=== PATIENT | male | born 1960 | race Caucasian/White ===

== ENCOUNTER 2016-12-30 05:59 | Emergency (ER) | payer MEDICAID ==
[2016-12-30] MEDS ORDERED: NS 1,000 ML IV ONE ×2 (06:27)
--- NOTE | 2016-12-30 06:34 | EDPHY ---
H & P Stated Complaint: pt c/o pain in L flank, thinks its a kidney stone, hx of same Source: Patient Exam Limitations: No limitations - Medical/Surgical History Hx Asthma: No Hx Chronic Respiratory Disease: No Hx Diabetes: No Hx Cardiac Disease: No Hx Renal Disease: No Hx Cirrhosis: No Hx Alcoholism: No Hx HIV/AIDS: No Hx Splenectomy or Spleen Trauma: No Other PMH: appy, hernia repair. kidney stones - Social History Smoking Status: Never smoked Time Seen by Provider: 12/30/16 06:26 HPI/ROS: HPI The patient presents with left-sided flank pain which has been intermittent for the last 2 weeks though became worse at about 2 o'clock in the morning while he was trying to sleep. He took aspirin and an old pain killer he had at home without much improvement in his symptoms, thus he came into the ER. He rates his pain as a 5/10 and says it has been constant. It does not radiate and is dull in nature. It feels like his prior kidney stones. On review of records, he had a KUB performed in May of 2015 which did demonstrate at least 2 kidney stones within the left kidney the largest of which measured 7 mm. He does report that he has hematuria, he denies any nausea or vomiting.. REVIEW OF SYSTEMS Constitutional: No fever, no chills. Eyes: No discharge. ENT: No sore throat. Cardiovascular: No chest pain, no palpitations. Respiratory: No cough, no shortness of breath. Gastrointestinal: No abdominal pain, no vomiting. Genitourinary: Positive for hematuria. Musculoskeletal: No back pain. Skin: No rashes. Neurological: No headache. PMHx: History of previous kidney stones, has not required any urologic procedures, is followed by Dr. Dunn [facility] Hx: Lives at home with his PHYSICAL General Appearance: Alert, no distress Eyes: Pupils equal and round no pallor or injection ENT, Mouth: Mucous membranes moist Respiratory: There are no retractions, lungs are clear to auscultation Cardiovascular: Regular rate and rhythm Gastrointestinal: Abdomen is soft and non-tender, no masses, bowel sounds normal, mild left-sided flank tenderness Neurological: A&O, moves all extremities Skin: Warm and dry, no rashes Musculoskeletal: Neck is supple non tender Extremities: symmetrical, full range of motion Psychiatric: Patient is oriented X 3, there is no agitation (Adilene Christopher) Constitutional: Initial Vital Signs Temperature (C) 37 C 12/30/16 06:15 Heart Rate 74 12/30/16 06:15 Respiratory Rate 18 12/30/16 06:15 Blood Pressure 131/86 H 12/30/16 06:15 O2 Sat (%) 94 12/30/16 06:15 O2 Delivery Mode Room Air Allergies/Adverse Reactions: No Known Allergies Allergy (Verified 12/30/16 06:17) Home Medications: Medication Instructions Recorded Hydrocodone/APAP 5/325 [[place] 1 - 2 tab PO Q6H PRN #15 tab 12/30/16 5/325 (*)] Ondansetron Odt [Zofran Odt] 4 mg PO Q4PRN PRN #20 tab 12/30/16 Tamsulosin HCl [Flomax 0.4 MG (*)] 0.4 mg PO DAILY #10 cap 12/30/16 Medical Decision Making Procedures: Bedside limited abdominal Ultrasound- performed and interpreted by me. Indication: Left flank pain Findings: Left-sided mild hydronephrosis bladder is decompressed, no free fluid Impression: Left-sided hydronephrosis (Adilene Christopher) Differential Diagnosis: This is a 56-year-old man with prior history of nephrolithiasis, followed by Urology, who presents with worsening left-sided flank pain since this morning. This is been associated with hematuria. Differential diagnosis includes ureterolithiasis, pyelonephritis, less likely AAA. In the emergency room, IV was established and the patient was given 2 L of IV fluid in addition to Toradol and lidocaine. Labs were checked and did reveal hematuria. Bedside ultrasound demonstrated mild hydronephrosis which is consistent with his known history of nephrolithiasis. I do not feel he needs CT scan imaging given his x-rays which confirmed kidney stone in his prior history. I anticipate that he will be able to be discharged home after receiving medications here. I will encourage him to follow up with his urologist. The case is signed out to Dr. Drummond. (Adilene Christopher) Other Provider: I assumed care of the patient at 7 o'clock in the morning. I re-evaluated him after his laboratory studies and urinalysis returned. The patient has hematuria consistent with recurrent ureterolithiasis. He has no evidence of a urinary tract infection. At 7:15 a.m. the patient reports his pain is currently 1/10. The patient is comfortable being discharged home. He will follow up with his regular urologist. He is discharged home with customary aftercare instructions. (Guy Drummond) - Data Points Laboratory Results: Laboratory Results 12/30/16 06:35 12/30/16 06:35 12/30/16 12/30/16 12/30/16 06:35 06:35 06:35 WBC 15.72 10^3/uL H 10^3/uL (3.80-9.50) RBC 5.08 10^6/uL 10^6/uL (4.40-6.38) Hgb 16.6 g/dL g/dL (13.7-17.5) Hct 47.2 % % (40.0-51.0) MCV 92.9 fL fL (81.5-99.8) MCH 32.7 pg pg (27.9-34.1) MCHC 35.2 g/dL g/dL (32.4-36.7) RDW 12.7 % % (11.5-15.2) Plt Count 221 10^3/uL 10^3/uL (150-400) MPV 10.4 fL fL (8.7-11.7) Neut % (Auto) 84.8 % H % (39.3-74.2) Lymph % (Auto) 9.6 % L % (15.0-45.0) Cass % (Auto) 4.3 % L % (4.5-13.0) Eos % (Auto) 0.5 % L % (0.6-7.6) Baso % (Auto) 0.3 % % (0.3-1.7) Nucleat RBC Rel Count 0.0 % % (0.0-0.2) Absolute Neuts (auto) 13.32 10^3/uL H 10^3/uL (1.70-6.50) Absolute Lymphs (auto) 1.51 10^3/uL 10^3/uL (1.00-3.00) Absolute Monos (auto) 0.68 10^3/uL 10^3/uL (0.30-0.80) Absolute Eos (auto) 0.08 10^3/uL 10^3/uL (0.03-0.40) Absolute Basos (auto) 0.05 10^3/uL 10^3/uL (0.02-0.10) Absolute Nucleated RBC 0.00 10^3/uL 10^3/uL (0-0.01) Immature Gran % 0.5 % % (0.0-1.1) Immature Gran # 0.08 10^3/uL 10^3/uL (0.00-0.10) Sodium 140 mEq/L mEq/L (134-144) Potassium 4.8 mEq/L mEq/L (3.5-5.2) Chloride 108 mEq/L mEq/L (97-110) Carbon Dioxide 19 mEq/l L mEq/l (22-31) Anion Gap 13 mEq/L mEq/L (8-16) BUN 18 mg/dL mg/dL (7-23) Creatinine 1.1 mg/dL mg/dL (0.7-1.3) Estimated GFR > 60 Glucose 172 mg/dL H mg/dL (70-100) Calcium 9.6 mg/dL mg/dL (8.5-10.4) Urine Color YELLOW Urine Appearance HAZY Urine pH 6.0 (5.0-7.5) Ur Specific [place] 1.019 (1.002-1.030) Urine Protein 1+ H (NEGATIVE) Urine Ketones NEGATIVE (NEGATIVE) Urine Blood 3+ H (NEGATIVE) Urine Nitrate NEGATIVE (NEGATIVE) Urine Bilirubin NEGATIVE (NEGATIVE) Urine Urobilinogen NEGATIVE EU EU (0.2-1.0) Ur Leukocyte Esterase NEGATIVE (NEGATIVE) Urine RBC 50-182 /hpf H /hpf (0-3) Urine WBC 1-3 /hpf /hpf (0-3) Ur Epithelial Cells NONE SEEN /lpf /lpf (NONE-1+) Hyaline Casts 5-15 /lpf /lpf (0-1) Urine Mucus 2+ /lpf H /lpf (NONE-1+) Urine Glucose NEGATIVE (NEGATIVE) Medications Given: Discontinued Medications Sodium Chloride (Ns) 1,000 mls @ 0 mls/hr IV ONCE ONE; Wide Open PRN Reason: Protocol Stop: 12/30/16 06:28 Last Admin: 12/30/16 06:27 Dose: 1,000 mls Sodium Chloride (Ns) 1,000 mls @ 0 mls/hr IV ONCE ONE; Wide Open PRN Reason: Protocol Stop: 12/30/16 06:28 Last Admin: 12/30/16 06:30 Dose: 1,000 mls Ketorolac Tromethamine (Toradol) 15 mg IVP EDNOW ONE Stop: 12/30/16 06:45 Last Admin: 12/30/16 06:45 Dose: 15 mg Departure - Departure Disposition: Home, Routine, Self-Care Clinical Impression: Ureterolithiasis Condition: Good Instructions: Renal Colic (ED) Additional Instructions: Please make sure to drink plenty of fluids. You should take ibuprofen 600 mg every 6 hours. You can take [place] if the pain is severe. Please take the Flomax as well. Call your urologist for follow-up in the next few days unless your completely better. Referrals: Kristi Ac [Primary Care Provider] - As per Instructions Meli Dunn MD [Medical Doctor] - As per Instructions Prescriptions: Hydrocodone/APAP 5/325 [[place] 5/325 (*)] 1 - 2 tab PO Q6H PRN #15 tab PRN Reason: Pain, Breakthrough Ondansetron Odt [Zofran Odt] 4 mg PO Q4PRN PRN #20 tab PRN Reason: For Nausea Tamsulosin HCl [Flomax 0.4 MG (*)] 0.4 mg PO DAILY #10 cap
[2016-12-30 06:43] LABS: % IMMATURE GRANULYOCYTES 0.5 % (0.0-1.1); ABSOLUTE IMMATURE GRANULOCYTES 0.08 10^3/uL (0.00-0.10); ADD DIFF? NO; ADD MORPH? NO; ADD SCAN? NO; ATYPICAL LYMPHOCYTE FLAG 0 (0-99); FRAGMENT RBC FLAG 0 (0-99); HEMATOCRIT 47.2 % (40.0-51.0); HEMOGLOBIN 16.6 g/dL (13.7-17.5); LEFT SHIFT FLG 0 (0-99); LIPEMIA HEMOLYSIS FLAG 90 (0-99); MEAN CELL HEMOGLOBIN 32.7 pg (27.9-34.1); MEAN CELL HEMOGLOBIN CONCENTR. 35.2 g/dL (32.4-36.7); MEAN CELL VOLUME 92.9 fL (81.5-99.8); MEAN PLATELET VOLUME 10.4 fL (8.7-11.7); PLATELET CLUMPS FLAG 0 (0-99); PLATELET COUNT 221 10^3/uL (150-400); RED BLOOD CELL COUNT 5.08 10^6/uL (4.40-6.38); RED CELL DISTRIBUTION WIDTH 12.7 % (11.5-15.2)
[2016-12-30] MEDS ORDERED: KETOROLAC 30 MG/1 ML SDV IVP ONE (06:44)
[2016-12-30] MEDS ORDERED: LIDOCAINE 1% 120 MG in NS 100 ML IV ONE (06:44)
[2016-12-30 06:49] LABS: COLOR YELLOW; LEUKOCYTE ESTERASE,URINE NEGATIVE (NEGATIVE); NITRITE,URINE NEGATIVE (NEGATIVE)
[2016-12-30 06:59] LABS: MUCUS 2+ /lpf (NONE-1+); RBC,URINE 50-182 /hpf (0-3)
[2016-12-30 07:01] LABS: ANION GAP 13 mEq/L (8-16); CALCIUM 9.6 mg/dL (8.5-10.4); CARBON DIOXIDE 19 mEq/l (22-31); CHLORIDE 108 mEq/L (97-110); CREATININE 1.1 mg/dL (0.7-1.3); GLOMERULAR FILTRATION RATE > 60; GLUCOSE 172 mg/dL (70-100); POTASSIUM 4.8 mEq/L (3.5-5.2); SODIUM 140 mEq/L (134-144)
[2016-12-30 08:14] VITALS: BP 132/76; PULSE 75; RESP 14; TEMP 98.7; O2SAT 98
== END 2016-12-30 08:00 | disposition home or self-care (01) ==
DX: N20.1 Calculus of ureter (principal); E86.9 Volume depletion, unspecified
CPT/HCPCS: 96374; J1885

== ENCOUNTER 2017-01-06 21:07 | Emergency (ER) | payer MEDICAID ==
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
[2017-01-06] MEDS ORDERED: CEPHALEXIN 500MG PREPACK#4 BTL TAKEHOME ONE (22:41)
[2017-01-06] MEDS ORDERED: CEPHALEXIN 500 MG CAP PO ONE (22:41)
[2017-01-06 22:55] LABS: COLOR PALE YELLOW; LEUKOCYTE ESTERASE,URINE NEGATIVE (NEGATIVE); NITRITE,URINE NEGATIVE (NEGATIVE)
[2017-01-06 23:03] LABS: MUCUS TRACE /lpf (NONE-1+)
[2017-01-06 23:21] VITALS: BP 164/98; PULSE 65; RESP 20; TEMP 99; O2SAT 96
== END 2017-01-06 23:26 | disposition home or self-care (01) ==
PROC: 0HQLXZZ Repair Left Lower Leg Skin, External Approach (ICD-10-PCS; principal; 2017-01-06)
DX: S81.012A Laceration without foreign body, left knee, initial encounter (principal); S80.211A Abrasion, right knee, initial encounter; S50.811A Abrasion of right forearm, initial encounter; S39.91XA Unspecified injury of abdomen, initial encounter; V18.0XXA Pedal cycle driver injured in noncollision transport accident in nontraffic accident, initial encounter
CPT/HCPCS: L1830